=== PATIENT | male | born 1940 | race Caucasian/White ===

== ENCOUNTER → 2017-08-28 | Outpatient (CLI) | payer MEDICARE, BC | LOC: M RAD 12:19 | DX: M51.26 Other intervertebral disc displacement, lumbar region (principal) | CPT/HCPCS: 72148 ==

== ENCOUNTER 2018-11-27 09:06 | Day surgery (SDC) | payer MEDICARE, BC ==
[2018-11-26] MEDS: NS 1,000 ML IV ONE (15:00)
[~2018-11-27] VITALS: Ht 188 cm; Wt 102.1 kg
[~2018-11-27 09:06] MED LIST: ALBU8.5H INH; AMLO5TAB6 PO; ATEN25TA PO; BREO1INH3 INH; CALCTAB89 PO; CETI-113 PO; CHOL4POW4 PO; COQ-100C5 PO; LEVO112T2 PO; LUTE6CAP9 PO; MAGN400C PO; MONT10TA2 PO; MULTCAP PO; RAMI1CAP24 PO; ROSU20TA5 PO; SAVA1TAB5 PO; TADA5TAB PO; TAMS1CAP17 PO; VITA200028 PO
[2018-11-27] MEDS ORDERED: LIDOCAINE 2% INJ 100 MG/5 ML SDV (FOR ANES.) As Ordered ONE (10:59)
[2018-11-27] MEDS ORDERED: GLYCOPYRROLATE INJ 0.2 MG/ML 2 ML VIAL As Ordered ONE (10:59)
[2018-11-27] MEDS ORDERED: PROPOFOL 200 MG/20 ML VIAL As Ordered ONE ×3 (10:59→11:26)
[2018-11-27] MEDS ORDERED: PHENYLephrine HCL 500 MCG/5 ML (100MCG/ML) SYRINGE (J2370) As Ordered ONE (11:32)
--- NOTE | 2018-11-27 11:45 | ROOR ---
Patient Name: Randall Navarro Procedure Date: 11/27/2018 10:49 AM Date of : 1940 Age: 78 Room: [facility] Gender: Male Note Status: Finalized Procedure: Upper GI endoscopy Indications: Dysphagia Providers: Dez Brantley MD Referring MD: KIERRA REID JR, MD Requesting Provider: Medicines: Monitored Anesthesia Care Complications: No immediate complications. Procedure: Pre-Anesthesia Assessment: - Prior to the procedure, a History and Physical was performed, and patient medications and allergies were reviewed. The patient is competent. The risks and benefits of the procedure and the sedation options and risks were discussed with the patient. All questions were answered and informed consent was obtained. Patient identification and proposed procedure were verified by the physician, the nurse and the anesthesiologist in the procedure room. Mental Status Examination: alert and oriented. CV Examination: regular rate and rhythm. Prophylactic Antibiotics: The patient does not require prophylactic antibiotics. Prior Anticoagulants: The patient has taken no previous anticoagulant or antiplatelet agents. ASA Grade Assessment: III - A patient with severe systemic disease. After reviewing the risks and benefits, the patient was deemed in satisfactory condition to undergo the procedure. The anesthesia plan was to use monitored anesthesia care (MAC). Immediately prior to administration of medications, the patient was re-assessed for adequacy to receive sedatives. The heart rate, respiratory rate, oxygen saturations, blood pressure, adequacy of pulmonary ventilation, and response to care were monitored throughout the procedure. The physical status of the patient was re-assessed after the procedure. The Endoscope was introduced through the mouth, and advanced to the second part of duodenum. The upper GI endoscopy was accomplished without difficulty. The patient tolerated the procedure well. Findings: One benign-appearing, intrinsic mild stenosis was found 40 cm from the incisors. This stenosis measured 1.4 cm (inner diameter) x less than one cm (in length). The stenosis was traversed. A TTS dilator was passed through the scope. Dilation with a 15-16.5-18 mm balloon dilator was performed to 16.5 mm. The dilation site was examined following endoscope reinsertion and showed mild mucosal disruption. Estimated blood loss was minimal. A 3 cm hiatal hernia was present. Localized mild inflammation characterized by erosions and erythema was found in the prepyloric region of the stomach. A single small sessile polyp with no stigmata of recent bleeding was found on the greater curvature of the stomach. A few localized erosions without bleeding were found in the duodenal bulb. A medium non-bleeding diverticulum was found in the second portion of the duodenum. Impression: - Benign-appearing esophageal stenosis. Dilated. - 3 cm hiatal hernia. - Acute gastritis. - A single gastric polyp. - Duodenal erosions without bleeding. - Non-bleeding duodenal diverticulum. - No specimens collected. Recommendation: - Discharge patient to home. - Resume previous diet. - Continue present medications. - Return to nurse practitioner as previously scheduled. Dez Brantley MD Dez Brantley MD 11/27/2018 11:45:36 AM Electronically signed by Dez Brantley MD Number of Addenda: 0 Note Initiated On: 11/27/2018 10:49 AM Estimated Blood Loss: Estimated blood loss: none.
--- NOTE | 2018-11-27 11:54 | ROOR ---
Patient Name: Randall Navarro Procedure Date: 11/27/2018 10:49 AM Date of : 1940 Age: 78 Room: [facility] Gender: Male Note Status: Finalized Procedure: Colonoscopy Indications: High risk colon cancer surveillance: Personal history of non-advanced adenoma, Last colonoscopy: June 2008 Providers: Dez Brantley MD Referring MD: KIERRA REID JR, MD Requesting Provider: Medicines: Monitored Anesthesia Care Complications: No immediate complications. Procedure: Pre-Anesthesia Assessment: - Prior to the procedure, a History and Physical was performed, and patient medications and allergies were reviewed. The patient is competent. The risks and benefits of the procedure and the sedation options and risks were discussed with the patient. All questions were answered and informed consent was obtained. Patient identification and proposed procedure were verified by the physician, the nurse and the anesthesiologist in the procedure room. Mental Status Examination: alert and oriented. CV Examination: regular rate and rhythm. Prophylactic Antibiotics: The patient does not require prophylactic antibiotics. Prior Anticoagulants: The patient has taken anticoagulant medication. ASA Grade Assessment: III - A patient with severe systemic disease. After reviewing the risks and benefits, the patient was deemed in satisfactory condition to undergo the procedure. The anesthesia plan was to use monitored anesthesia care (MAC). Immediately prior to administration of medications, the patient was re-assessed for adequacy to receive sedatives. The heart rate, respiratory rate, oxygen saturations, blood pressure, adequacy of pulmonary ventilation, and response to care were monitored throughout the procedure. The physical status of the patient was re-assessed after the procedure. The Colonoscope was introduced through the anus and advanced to the ileocecal valve. The colonoscopy was performed without difficulty. The patient tolerated the procedure well. The quality of the bowel preparation was good. Findings: The perianal and digital rectal examinations were normal. A 8 mm polyp was found in the proximal ascending colon. The polyp was sessile. The polyp was removed with a cold snare. Resection and retrieval were complete. To prevent bleeding after the polypectomy, one hemostatic clip was successfully placed (MR conditional). There was no bleeding at the end of the procedure. Multiple medium-mouthed diverticula were found in the sigmoid colon. Impression: - One 8 mm polyp in the proximal ascending colon, removed with a cold snare. Resected and retrieved. Clip (MR conditional) was placed. - Diverticulosis in the sigmoid colon. Recommendation: - Discharge patient to home. - Resume previous diet. - Continue present medications. - Await pathology results. Dez Brantley MD Dez Brantley MD 11/27/2018 11:53:51 AM Electronically signed by Dez Brantley MD Number of Addenda: 0 Note Initiated On: 11/27/2018 10:49 AM Estimated Blood Loss: Estimated blood loss was minimal.
[2018-11-27 12:02] VITALS: BP 131/85
== END 2018-11-27 12:20 | disposition home or self-care (01) ==
LOC: M OPP 09:06
PROVIDERS: ATTEND Surgery
DX: Z12.11 Encounter for screening for malignant neoplasm of colon (principal); Z86.010 Personal history of colon polyps; D12.2 Benign neoplasm of ascending colon; K57.30 Diverticulosis of large intestine without perforation or abscess without bleeding; K22.2 Esophageal obstruction; K44.9 Diaphragmatic hernia without obstruction or gangrene; K29.00 Acute gastritis without bleeding; K31.7 Polyp of stomach and duodenum; K26.9 Duodenal ulcer, unspecified as acute or chronic, without hemorrhage or perforation; R13.10 Dysphagia, unspecified; K57.10 Diverticulosis of small intestine without perforation or abscess without bleeding; Z95.5 Presence of coronary angioplasty implant and graft
CPT/HCPCS: 43249; 45385; 88305; J2370

== ENCOUNTER → 2019-08-12 | Outpatient (REF) | payer MEDICARE, BC ==
[~2019-08-12] MED LIST changes: -MONT10TA2 PO; +MONT10TA4 PO; -SAVA1TAB5 PO; +SAVA1TAB6 PO
[2019-08-12 12:45] LABS: APPEARANCE, URINE CLEAR (CLEAR); BACTERIA, URINE AUTO NEGATIVE (NEGATIVE); BILIRUBIN, URINE AUTO NEGATIVE (NEGATIVE); BLOOD, URINE BLOOD NEGATIVE (NEGATIVE); COLOR, URINE YELLOW (YELLOW); GLUCOSE, URINE (UA) AUTO NEGATIVE (NEGATIVE); KETONE, URINE AUTO NEGATIVE (NEGATIVE); LEUKOCYTE ESTERASE, URINE AUTO NEGATIVE (NEGATIVE); MUCUS, URINE SMALL (NEGATIVE); NITRITE, URINE AUTO NEGATIVE (NEGATIVE); PROTEIN, URINE AUTO NEGATIVE (NEGATIVE); RBC, URINE AUTO 0 /HPF (0-3); SPECIFIC GRAVITY URINE AUTO 1.018 (1.002-1.035); SQUAMOUS EPITHELIAL CELL UR AU 0 /HPF (0-6); UROBILINOGEN, URINE AUTO 0.2 mg/dL (0.0-2.0); WBC, URINE AUTO 0 /HPF (0-3)
[2019-08-12 12:55] LABS: INR 1.06; PROTHROMBIN TIME 13.5 SECONDS (11.8-14.0)
== END ==
LOC: M LAB REF 11:16
PROVIDERS: ATTEND Internal Medicine
DX: Z01.818 Encounter for other preprocedural examination (principal); Z79.01 Long term (current) use of anticoagulants

== ENCOUNTER → 2023-02-13 | Outpatient (REF) | payer MEDICARE, BC ==
[~2023-02-13] MED LIST changes: +AMLO1TAB24 PO; -AMLO5TAB6 PO; +CHOL4POW26 PO; -CHOL4POW4 PO; -MONT10TA4 PO; +MONT10TA97 PO; -ROSU20TA5 PO; +ROSU20TA61 PO
== END ==
LOC: M LAB REF 12:12
PROVIDERS: ATTEND Internal Medicine
DX: M15.9 Polyosteoarthritis, unspecified (principal)

== ENCOUNTER → 2024-02-11 | Outpatient (CLI) | payer MEDICARE, BC ==
[~2024-02-11] MED LIST changes: -RAMI1CAP24 PO; +RAMI5CAP60 PO; -ROSU20TA61 PO; +ROSU20TA86 PO; -TADA5TAB PO; +TADA5TAB94 PO
== END ==
LOC: M PLAIMG 09:45
PROVIDERS: ATTEND Internal Medicine Pulmonary Disease
DX: R91.8 Other nonspecific abnormal finding of lung field (principal)